=== PATIENT | female | born 1990 | race Hispanic/Latino ===

== ENCOUNTER 2021-11-04 16:42 | Emergency (ER) | payer OTHER ==
[~2021-11-04] VITALS: Ht 157.5 cm; Wt 71.7 kg
[~2021-11-04 16:42] MED LIST: HYDROXYZINE HCL50 MG PO
--- OUTSIDE RECORDS SUMMARY | 2021-11-04 16:44 | XMS ---
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 EDee Dee VISIT COUNT (12 MO.) [address] [place] [address] TOTAL 6 NOTE: Visits indicate total known visits. ED/UCC VISIT TRACKING (12 MO.) 2021 16:42 [facility] [place] TYPE: Emergency COMPLAINT: - HEART PALPATATIONS 10/31/2021 19:24 [facility] COMPLAINT: - CHEST PAIN DIAGNOSES: - CHEST PAIN 08/09/2021 16:05 [facility] [employer] OR TYPE: Emergency DIAGNOSES: - Unspecified ovarian cyst, right side - ABDOMINAL CRAMPS 07/30/2021 17:35 [facility] [place] TYPE: Emergency COMPLAINT: - ABDOMINAL PAIN DIAGNOSES: - Lower abdominal pain, unspecified - Nausea - Diarrhea, unspecified - Low back pain, unspecified 03/26/2021 15:35 [facility] [place] TYPE: Emergency DIAGNOSES: - Tension-type headache, unspecified, not intractable - Anxiety disorder, unspecified - HEADACHE ANXIETY 02/13/2021 18:04 [facility] OR TYPE: Emergency DIAGNOSES: - Palpitations - Shortness of Breath; panic attack INPATIENT VISIT TRACKING (12 MO.) No inpatient visits to display in this time frame [id number]
[2021-11-04] MEDS ORDERED: ATIVAN1 MG PO (18:11)
--- NOTE | 2021-11-06 19:51 | EKG ---
[facility] [address] [facility] [place] [address] Signed Normal sinus rhythm with sinus arrhythmia Normal ECG No previous ECGs available Confirmed by Yue Siddiqi MD () on 11/06/2021 7:51:14 PM Electronically Signed By: YUE SIDDIQI MD 11/06/211950 PATIENT NAME: ALEKS LOUISE Electrocardiogram DATE OF : 89 PHYSICIAN: YUE SIDDIQI MD REPORT #: [id number] REPORT IS CONFIDENTIAL AND NOT TO BE RELEASED WITHOUT AUTHORIZATION
== END 2021-11-04 19:01 | disposition home or self-care (01) ==
LOC: ED 16:42
DX: F41.9 Anxiety disorder, unspecified (principal); Z79.899 Other long term (current) drug therapy
CPT/HCPCS: 93005; 93010; 99283-25; A9270-GY

== ENCOUNTER 2021-12-17 11:43 | Emergency (ER) | payer OTHER ==
[~2021-12-17] VITALS: Ht 157.5 cm; Wt 71.7 kg
[~2021-12-17 11:43] MED LIST changes: +ATIVAN1 MG PO
--- OUTSIDE RECORDS SUMMARY | 2021-12-17 11:46 | XMS ---
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 Current PHONE: Unknown [place] has no Care Guidelines for this patient. Todd VISIT COUNT (12 MO.) [address] [place] [address] [facility] TOTAL 7 NOTE: Visits indicate total known visits. ED/UCC VISIT TRACKING (12 MO.) 12/17/2021 11:44 [facility] [place] TYPE: Emergency COMPLAINT: - L LEG PAIN 2021 16:42 [facility] [place] TYPE: Emergency COMPLAINT: - HEART PALPATATIONS DIAGNOSES: - Anxiety disorder, unspecified - Other mcc (current) drug therapy 10/31/2021 19:24 [facility] OR TYPE: Emergency COMPLAINT: - CHEST PAIN DIAGNOSES: - CHEST PAIN 08/09/2021 16:05 [facility] [place] TYPE: Emergency DIAGNOSES: - ABDOMINAL CRAMPS - Unspecified ovarian cyst, right side 07/30/2021 17:35 [facility] [place] TYPE: Emergency COMPLAINT: - ABDOMINAL PAIN DIAGNOSES: - Diarrhea, unspecified - Low back pain, unspecified - Lower abdominal pain, unspecified - Nausea 03/26/2021 15:35 [facility] [place] TYPE: Emergency DIAGNOSES: - HEADACHE ANXIETY - Tension-type headache, unspecified, not intractable - Anxiety disorder, unspecified 02/13/2021 18:04 [facility] [place] TYPE: Emergency DIAGNOSES: - Shortness of Breath; panic attack - Palpitations INPATIENT VISIT TRACKING (12 MO.) No inpatient visits to display in this time frame [id number]
== END 2021-12-17 12:55 | disposition home or self-care (01) ==
LOC: ED 11:43
DX: M79.662 Pain in left lower leg (principal); Z79.899 Other long term (current) drug therapy
CPT/HCPCS: 93971; 99283-25

== ENCOUNTER 2021-12-31 12:54 | Emergency (ER) | payer OTHER ==
[~2021-12-31] VITALS: Ht 157.5 cm; Wt 72.0 kg
--- OUTSIDE RECORDS SUMMARY | 2021-12-31 12:59 | XMS ---
PreManage Notification: ALEKS LOUISE Security Review Nurse Events No recent Security Events currently on file CRITERIA MET - [facility] - 2 Visits in 30 Days - 6 ED Visits in 6 Months - [facility] CARE PROVIDERS Mauro Seth PA-C Physician Special Education Instructor Current PHONE: Unknown [facility] Current PHONE: Unknown [place] has no Care Guidelines for this patient. E.DShweta VISIT COUNT (12 MO.) [address] [place] [address] TOTAL 8 NOTE: Visits indicate total known visits. ED/UCC VISIT TRACKING (12 MO.) 12/31/2021 12:55 [facility] [place] TYPE: Emergency COMPLAINT: - UPPER ABD PAIN, SOB 12/17/2021 11:[address] [facility] [place] TYPE: Emergency COMPLAINT: - L LEG PAIN DIAGNOSES: - Pain in left lower leg - Other intermediate (current) drug therapy 2021 16:42 [facility] [place] TYPE: Emergency COMPLAINT: - HEART PALPATATIONS DIAGNOSES: - Other equipment operator intermodal yard (current) drug therapy - Anxiety disorder, unspecified 10/31/2021 19:24 [facility] [place] TYPE: Emergency COMPLAINT: - CHEST PAIN DIAGNOSES: - CHEST PAIN 08/09/2021 16:05 [facility] [place] TYPE: Emergency DIAGNOSES: - Unspecified ovarian cyst, right side - ABDOMINAL CRAMPS 07/30/2021 17:[facility] COMPLAINT: - ABDOMINAL PAIN DIAGNOSES: - Nausea - Diarrhea, unspecified - Low back pain, unspecified - Lower abdominal pain, unspecified 03/26/2021 15:35 [facility] [place] TYPE: Emergency DIAGNOSES: - Anxiety disorder, unspecified - HEADACHE ANXIETY - Tension-type headache, unspecified, not intractable 02/13/2021 18:04 [facility] [place] TYPE: Emergency DIAGNOSES: - Palpitations - Shortness of Breath; panic attack INPATIENT VISIT TRACKING (12 MO.) No inpatient visits to display in this time frame [id number]
[2021-12-31] MEDS ORDERED: BUSPIRONE HCL5 MG PO (13:16)
[2021-12-31] MEDS ORDERED: AMOXICILLIN500 MG PO (13:16)
== END 2021-12-31 15:46 | disposition home or self-care (01) ==
LOC: ED 12:54
DX: R10.13 Epigastric pain (principal); Z79.899 Other long term (current) drug therapy
CPT/HCPCS: 36415; 80053; 81003; 83690; 84703; 85025; 96374; 96375; 99284-25; J1885; J2060

== ENCOUNTER 2023-09-13 14:38 | Emergency (ER) | payer OTHER ==
[~2023-09-13] VITALS: Ht 157.5 cm; Wt 80.6 kg
[~2023-09-13 14:38] MED LIST changes: +AMOXICILLIN500 MG PO; +BUSPIRONE HCL5 MG PO
[2023-09-13] MEDS ORDERED: CITALOPRAM HBR10 MG PO (15:19)
[2023-09-13] MEDS ORDERED: TRAZODONE HCL50 MG PO (15:19)
[2023-09-13] MEDS ORDERED: ATIVAN1 MG PO (15:19)
[2023-09-13 15:23] VITALS: BP 138/86
== END 2023-09-13 15:23 | disposition home or self-care (01) ==
LOC: ED 14:38
DX: F41.9 Anxiety disorder, unspecified (principal); R20.2 Paresthesia of skin
CPT/HCPCS: 99283

== ENCOUNTER 2024-06-12 16:17 | Emergency (ER) | payer OTHER ==
[~2024-06-12] VITALS: Ht 157.5 cm; Wt 83.3 kg
[~2024-06-12 16:17] MED LIST changes: +CITALOPRAM HBR10 MG PO; +TRAZODONE HCL50 MG PO
--- OUTSIDE RECORDS SUMMARY | 2024-06-12 16:23 | XMS ---
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 Events No recent Security Events currently on file CRITERIA MET - [facility] - 2 Visits in 30 Days CARE PROVIDERS CIH MURPHY Licensed Optical Dispenser 02/03/2022-Current PHONE: [phone] -[facility] Dentist: Medical Orderly Current [place] PHONE: [phone] -[place]- Dentist: Medical Orderly Current [facility] PHONE: [phone] Mauro Seth PA-C Physician Blood Bank Supervisor Current PHONE: Unknown CASSIUS SERRA Physician Blood Bank Supervisor Current PHONE: Unknown ADY ANGULO Physician Blood Bank Supervisor Current PHONE: [phone] [place] has no Care Guidelines for this patient. Todd VISIT COUNT (12 MO.) 2 [facility] T[facility] NOTE: Visits indicate total known visits. ED/UCC VISIT TRACKING (12 MO.) 06/12/2024 16:17 [facility] [place] TYPE: Emergency COMPLAINT: - ANXIETY 05/29/2024 10:53 [facility] [place] TYPE: Emergency DIAGNOSES: - Generalized anxiety disorder - PANIC ATTACK 09/13/2023 14:38 [facility] [place] TYPE: Emergency COMPLAINT: - ARM PAIN DIAGNOSES: - Anxiety disorder, unspecified - Paresthesia of skin INPATIENT VISIT TRACKING (12 MO.) No inpatient visits to display in this time frame [id number]
[2024-06-12] MEDS ORDERED: FLUOXETINE HCL20 MG PO (17:35)
[2024-06-12] MEDS ORDERED: ATIVAN1 MG PO (17:52)
[2024-06-12] MEDS ORDERED: HYDROXYZINE HCL25 MG PO (17:52)
[2024-06-12 18:02] VITALS: BP 152/92
== END 2024-06-12 18:00 | disposition home or self-care (01) ==
LOC: ED 16:17
DX: F41.9 Anxiety disorder, unspecified (principal); Z79.899 Other long term (current) drug therapy
CPT/HCPCS: 99283